=== PATIENT | female | born 1965 | race African-American/Black ===

== ENCOUNTER 2019-11-01 09:37 | Emergency (ER) | payer MEDICAID, OTHER ==
[~2019-11-01] VITALS: Ht 157.5 cm; Wt 70.5 kg
[2019-11-01] MEDS ORDERED: LIDOCAINE 5% PATCH TOP STA (11:34)
[2019-11-01 12:29] VITALS: BP 121/75
== END 2019-11-01 12:29 | disposition home or self-care (01) ==
LOC: ER 09:37
DX: M25.512 Pain in left shoulder (principal); F17.210 Nicotine dependence, cigarettes, uncomplicated
CPT/HCPCS: 73030; 99283; 99406